=== PATIENT | female | born 1975 ===

== ENCOUNTER 2021-08-05 03:36 | Emergency (ER) | payer OTHER ==
[~2021-08-05] VITALS: Ht 162.6 cm; Wt 88.9 kg
[~2021-08-05 03:36] MED LIST: NORFLEX100 MG PO; PROPRANOLOL HCL10 MG; RELAFEN500 MG PO
[2021-08-05] MEDS ORDERED: MEDROLPACK PO (06:12)
[2021-08-05] MEDS ORDERED: DICLOFENAC SODI75 MG PO (06:12)
== END 2021-08-05 06:19 | disposition home or self-care (01) ==
LOC: ER 03:36
DX: S20.211A Contusion of right front wall of thorax, initial encounter (principal); S40.022A Contusion of left upper arm, initial encounter; S80.02XA Contusion of left knee, initial encounter; S80.01XA Contusion of right knee, initial encounter; S20.222A Contusion of left back wall of thorax, initial encounter; Y04.2XXA Assault by strike against or bumped into by another person, initial encounter; Y93.89 Activity, other specified; Y92.89 Other specified places as the place of occurrence of the external cause; Y99.8 Other external cause status